=== PATIENT | male | born 1995 | race Caucasian/White ===

== ENCOUNTER 2021-11-08 19:20 | Emergency (ER) | payer BC ==
[2021-11-08] MEDS ORDERED: Lidocaine 1% with EPINEPHrine 1:100,000 20 ML MDV INJECT ONE (21:06)
== END 2021-11-08 22:20 | disposition home or self-care (01) ==
LOC: JD.ED 19:20
DX: S61.411A Laceration without foreign body of right hand, initial encounter (principal); Z91.018 Allergy to other foods; W55.12XA Struck by horse, initial encounter
CPT/HCPCS: 12002; 73130-26-RT; 73130-RT; 99283